=== PATIENT | male | born 1960 | race Caucasian/White ===

== ENCOUNTER 2022-07-16 17:29 | Emergency (ER) | payer MEDICARE ==
[2022-07-16 17:46] VITALS: BP 139/90; PULSE 68; RESP 20; TEMP 97.8
--- NOTE | 2022-07-16 19:23 | ED ---
General Adult HPI - General Chief complaint: Recheck/Abnormal Lab/Rx Stated complaint: Sent by PCP,Abn Labs Time Seen by Provider: 07/16/22 17:40 Source: patient Mode of arrival: ambulatory Limitations: no limitations - History of Present Illness Initial comments: 62-year-old male with past history of metastatic colon cancer who presents to the emergency department for abnormal CT results. States that he just moved to [facility] and saw Dr. Foster in office today. He has laboratory studies conducted. His primary care sent him in for a CAT scan to evaluate the status of his cancer. He states he has been through 30 rounds of chemo. He has had surgical resection. He went through immunotherapy. He was told by 3 different oncologist that he only qualified for chemo treatments which likely he would not respond to. He stopped doing any type of treatment 6 months ago. He denies any nausea or vomiting. Does admit that he has been having some stool incontinence. No fevers. No chest pain or shortness of breath. He was told to wait after the results of his CAT scan to receive the results. He denies any new symptoms in the past week. No other alleviating, precipitating or modifying factors - Related Data Allergies Allergy/AdvReac Type Severity Reaction Status Date / Time No Known Allergies Allergy Verified 07/16/22 18:43 Review of Systems ROS Statement: Those systems with pertinent positive or pertinent negative responses have been documented in the HPI. ROS Other: All systems not noted in ROS Statement are negative. Past Medical History Past Medical History: Hypertension Additional Past Medical History / Comment(s): CX History of Any Multi-Drug Resistant Organisms: None Reported Past Surgical History: No Surgical Hx Reported, Hernia Repair Additional Past Surgical History / Comment(s): CX SURGERY (ABDOMINAL). INCISIONAL HERNIA Past Psychological History: No Psychological Hx Reported Smoking Status: Never smoker Past Alcohol Use History: None Reported Past Drug Use History: None Reported General Exam Limitations: no limitations General appearance: alert, in no apparent distress, cachectic Head exam: Present: atraumatic, normocephalic, normal inspection Eye exam: Present: normal appearance, PERRL, EOMI. Absent: scleral icterus, conjunctival injection, periorbital swelling ENT exam: Present: normal exam, mucous membranes moist Neck exam: Present: normal inspection. Absent: tenderness, meningismus, lymphadenopathy Respiratory exam: Present: normal lung sounds bilaterally. Absent: respiratory distress, wheezes, rales, rhonchi, stridor Cardiovascular Exam: Present: regular rate, normal rhythm, normal heart sounds. Absent: systolic murmur, diastolic murmur, rubs, gallop, clicks GI/Abdominal exam: Present: soft, normal bowel sounds. Absent: distended, tenderness, guarding, rebound, rigid Extremities exam: Present: normal inspection, full ROM, normal capillary refill. Absent: tenderness, pedal edema, joint swelling, calf tenderness Back exam: Present: normal inspection Neurological exam: Present: alert, oriented X3, CN II-XII intact Psychiatric exam: Present: normal affect, normal mood Skin exam: Present: warm, dry, intact, normal color. Absent: rash Course Vital Signs 07/16/22 17:40 Temperature 97.8 F Pulse Rate 68 Respiratory 20 Rate Blood Pressure 139/90 O2 Sat by Pulse 100 Oximetry Medical Decision Making - Medical Decision Making Was pt. sent in by a medical professional or institution (, PA, BASKET PERSON, urgent care, hospital, or penitentiary...) When possible be specific @ -Dr. Foster Did you speak to anyone other than the patient for history (EMS, parent, family, police, friend...)? What history was obtained from this source @ -No Did you review nursing and triage notes (agree or disagree)? Why? @ -I reviewed and agree with nursing and triage notes Were old charts reviewed (outside hosp., previous admission, EMS record, old EKG, old radiological studies, urgent care reports/EKG's, penitentiary records)? Report findings @ -No Differential Diagnosis (chest pain, altered mental status, abdominal pain women, abdominal pain men, vaginal bleeding, weakness, fever, dyspnea, syncope, headache, dizziness, GI bleed, back pain, seizure, CVA, palpatations, mental health, musculoskeletal)? @ -peptic ulcer, gastritis, gastric perforation, abscess, seroma, pneumoperitoneum EKG interpreted by me (3pts min.). @ -No X-rays interpreted by me (1pt min.). @ -None done CT interpreted by me (1pt min.). @ -Outpatient CT reviewed U/S interpreted by me (1pt. min.). @ -None done What testing was considered but not performed or refused? (CT, X-rays, U/S, labs)? Why? @ -Admission for surgical and oncology eval. Patient wanted to go home What meds were considered but not given or refused? Why? @ -None Did you discuss the management of the patient with other professionals (professionals i.e. , PA, BASKET PERSON, lab, RT, psych nurse, social scientist, family nurse, teacher, promotion officer, case monitor)? Give summary @ -Attempted to make contact with Dr. Foster but he didn't respond back Was smoking cessation discussed for >3mins.? @ -No Was critical care preformed (if so, how long)? @ -No Were there social determinants of health that impacted care today? How? (Homelessness, low income, unemployed, alcoholism, drug addiction, transportation, low edu. Level, literacy, decrease access to med. care, alf, rehab)? @ -No Was there de-escalation of care discussed even if they declined (Discuss DNR or withdrawal of care, Hospice)? DNR status @ -Yes. Patient would like to be DNR What co-morbidities impacted this encounter? (DM, HTN, Smoking, COPD, CAD, Cancer, CVA, ARF, Chemo, Hep., AIDS, mental health diagnosis, sleep apnea, morbid obesity)? @ -colon cancer Was patient admitted / discharged? Hospital course, mention meds given and route, prescriptions, significant lab abnormalities, going to OR and other pertinent info. @ -Arrival patient was placed into room 16. I did review the patient's CAT scan and did go over the results in depth with the patient. He states he has no abdominal pain. He is not vomiting. He is able to have bowel movements and his bowel habits have not changed within the past couple of weeks. I did inform him that he does have a partial small bowel obstruction. I recommended being admitted to the hospital for oncology consultation. Patient states that he knows his choices are to have chemo and that he will not have any more chemo. He would prefer to be comfortable. States that he has accepted that he will okay with this. He is going to be referred by his primary care doctor to a colorectal surgeon who may offer some other choices. Since the patient doesn't have any acute changes in his status at this time he wants to go home. I do attempt to call the patient's primary care doctor. Awaiting callback at this time. Patient will be discharged at this is his wishes and he knows the risks. Patient discharged with a guarded prognosis Undiagnosed new problem with uncertain prognosis? @ -No Drug Therapy requiring intensive monitoring for toxicity (Heparin, Nitro, Insulin, Cardizem)? @ -No Were any procedures done? @ -No Diagnosis/symptom? @ -small bowel obstruction, colon cancer Acute, or Chronic, or Acute on Chronic? @ -chronic Uncomplicated (without systemic symptoms) or Complicated (systemic symptoms)? @ -complicated Side effects of treatment? @ -No Exacerbation, Progression, or Severe Exacerbation? @ -No Poses a threat to life or bodily function? How? (Chest pain, USA, MS, pneumonia, PE, COPD, DKA, ARF, appy, cholecystitis, CVA, Diverticulitis, Homicidal, Suicidal, threat to staff... and all critical care pts) @ -Yes, high risk of Disposition Clinical Impression: Small bowel obstruction Disposition: HOME SELF-CARE Condition: Stable Instructions (If sedation given, give patient instructions): Bowel Obstruction (ED) Additional Instructions: Please call your primary care doctor. Return for any new or worsening symptoms including inability to hold down any foods, significant abdominal pain or or inability to have a bowel movement Is patient prescribed a controlled substance at d/c from ED?: No Referrals: Otis Foster MD [Primary Care Provider] - 1-2 days Time of Disposition: 19:22
== END 2022-07-16 19:41 | disposition home or self-care (01) ==
LOC: EC 17:29
DX: K56.609 Unspecified intestinal obstruction, unspecified as to partial versus complete obstruction (principal); I10 Essential (primary) hypertension
CPT/HCPCS: 99283

== ENCOUNTER → 2022-07-16 | Outpatient (CLI) | payer MEDICARE ==
--- NOTE | 2022-07-16 17:02 | CT ---
EXAMINATION TYPE: CT ChestAbdPelvis w con DATE OF EXAM: 07/16/2022 COMPARISON: None. HISTORY: Colon CA CT DLP: 675.1 mGycm. Automated Exposure Control for Dose Reduction was Utilized. CONTRAST: CT scan of the thorax, abdomen and pelvis is performed with oral and with IV Contrast, patient inject ed with 100cc mL of Isovue 300. FINDINGS: LUNGS: Scattered small bilateral pulmonary nodules are worrisome for metastatic disease. For referenc es a 9 x 6 mm left upper lobe pulmonary nodule axial image 32. For reference is a 1.5 x 1.2 cm right lower lobe nodule axial image 48. No pleural effusion or pneumothorax seen bilaterally. MEDIASTINUM: There are no greater than 1 cm hilar or mediastinal lymph nodes. Small to tiny pericardi al effusion is seen. No cardiomegaly. OTHER: There is left-sided internal jugular Mediport catheter terminating in SVC. There is heterogene ous left axillary mass and distinct from adjacent muscles worrisome for metastatic deposit measuring approximate 4.6 x 4.1 cm axial image 20. LIVER/GB: Heterogeneous hypodense masses throughout the liver consistent with hepatic metastatic dise ase. PANCREAS: No significant abnormality is seen. SPLEEN: No significant abnormality is seen. ADRENALS: No significant abnormality is seen. KIDNEYS: There is symmetric corticomedullary uptake and excretion of both kidneys with moderate bilat eral hydronephrosis. BOWEL: Oral contrast does not opacified left sided bowel loops and bowel loops in the pelvis. There a re surgical changes from surgery and anastomosis in the region of the hepatic flexure. There is sugge stion of large rectal mass or neoplasm axial image 122. There are some contrast and noncontrast fille d prominent small and large bowel loops throughout the abdomen and pelvis. GENITAL ORGANS: Mildly enlarged prostate gland. Posterior to the prostate there is gas of uncertain e tiology presumed distended neoplastic rectum with nondependent gas. LYMPH NODES: There are abnormal mesenteric masses and/or adenopathy with nodularity of the mesentery and for reference 2.2 x 2.1 cm right mid abdominal mesenteric prostatic lesion axial image 86. OSSEOUS STRUCTURES: Metallic hardware from right hip arthroplasty causes streak artifact limiting janee luation of pelvic structures. Grade 1 anterolisthesis L3 on L4. OTHER: Several heterogeneous metastatic lesions in the anterior wall of the abdomen and pelvis includ ing rectus involvement. Metastatic lesion just above the left aspect of the bladder measuring 3.5 x 3 .4 cm axial image 114. IMPRESSION: Return advanced age metastatic disease with pulmonary and hepatic metastatic disease efren g with soft tissue and mesenteric metastatic deposits and metastatic deposits along the rectus muscle s. There is likely partial bowel obstruction due to serosal studding of bowel loops in the abdomen an d pelvis. There is bilateral moderate hydronephrosis but no delayed excretion likely due to diffuse m etastatic disease.
== END | disposition home or self-care (01) ==
LOC: RADCTMAIN 14:20
PROVIDERS: ATTEND Family Medicine
DX: C18.1 Malignant neoplasm of appendix (principal); N13.30 Unspecified hydronephrosis
CPT/HCPCS: 71260; 74177; Q9967